=== PATIENT | male | born 1960 | race Caucasian/White ===

== ENCOUNTER 2020-08-16 17:23 | Emergency (ER) | payer MEDICAID ==
[~2020-08-16] VITALS: Ht 185.4 cm; Wt 91.9 kg
--- NOTE | 2020-08-16 17:43 | NUR ---
CONCERNS FOR FROSTBITE ON INDEX, MIDDLE AND RIGHT FINGER ON RIGHT HAND. 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 PT STATES FINGERS WERE WHITE, THEN PURPLE AND NAILBEDS TURNED "ASSISTED BLACK". FINGERS CURRENTLY SWOLLEN AND RED, SMALL OPEN WOUND TO TIP OF MIDDLE FINGER. PT STATES FINGERS ARE "SORE" AND "I CANT EVEN PUT THEM IN MY POCKET". SO AT BEDSIDE
--- NOTE | 2020-08-16 18:23 | NUR ---
REPORT RECEIVED FROM CIARRA LYNN. ASSUMING CARE AT THIS TIME. XRAY AT BEDSIDE.
[2020-08-16] MEDS ORDERED: KETOROLAC 30 MG/1 ML ONE (18:26)
[2020-08-16] MEDS ORDERED: OXYcodone/APAP 5/325MG TABLET ONE (18:27)
[2020-08-16] MEDS ORDERED: OXYcodone/APAP 5/325MG TABLET PO ONE (18:30)
[2020-08-16] MEDS ORDERED: KETOROLAC 30 MG/1 ML IM ONE (18:30)
--- NOTE | 2020-08-16 18:33 | NUR ---
MEDS ADMIN PER MAY. LAB AT BEDSIDE.
[2020-08-16 18:44] LABS: BASOPHILS % (AUTO) 1 % (0-1); EOSINOPHILS % (AUTO) 3 % (1-7); LYMPHOCYTES % (AUTO) 32 % (22-44); MD NO; MEAN CORPUSCULAR HGB CONC 34.9 g/dL (33.2-36.2); MEAN PLATELET VOLUME 8.1 fL (7.4-10.4); MONOCYTES % (AUTO) 12 % (2-9); NEUTROPHILS % (AUTO) 53 % (42-75); PLATELET COUNT 115 x10^3/uL (130-400); RED BLOOD COUNT 4.62 x10^6/uL (4.38-5.82); RED CELL DISTRIBUTION WIDTH 13.5 % (9.4-14.8)
[2020-08-16 18:53] LABS: ANION GAP 5 mmol/L (5-15); CALCIUM 8.7 mg/dL (8.5-10.1); CHLORIDE 111 mmol/L (98-107); CREATININE 1.03 mg/dL (0.7-1.3)
[2020-08-16 19:34] LABS: HCT (SEDRATE) 42.4 % (39.2-51.8)
--- NOTE | 2020-08-16 19:40 | NUR ---
ALL RESULTS ARE BACK AT THIS TIME. CHART UP FOR RECHECK.
[2020-08-16 19:56] VITALS: BP 140/86
--- NOTE | 2020-08-16 20:18 | NUR ---
ERMD AT BEDSIDE TO UPDATE PT ON POC.
== END 2020-08-16 21:17 | disposition home or self-care (01) ==
LOC: ED 19:44
DX: M79.644 Pain in right finger(s) (principal); I10 Essential (primary) hypertension
CPT/HCPCS: 36415; 73140; 80048; 85025; 85651; 86140; 96372; 99284; J1885

== ENCOUNTER 2020-08-20 21:54 | Inpatient (IN) | payer MEDICAID ==
[~2020-08-20] VITALS: Ht 185.4 cm; Wt 91.0 kg
--- NOTE | 2020-08-20 23:12 | NUR ---
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
[2020-08-21] MEDS ORDERED: HYDROcodone/APAP 10/325 MG TABLET ONE (00:14)
[2020-08-21] MEDS ORDERED: GABAPENTIN 300 MG CAPSULE ONE (00:15)
[2020-08-21] MEDS ORDERED: HYDROcodone/APAP 10/325 MG TABLET PO ONE (00:30)
[2020-08-21] MEDS ORDERED: GABAPENTIN 300 MG CAPSULE PO ONE (00:30)
--- NOTE | 2020-08-21 01:00 | NUR ---
PT ARRIVED TO ER WITH KNOWN BLOOD CLOT IN R ARM. PT HAD VISITED [facility] A FEW DAYS AGO AND REALIZED THAT HE WOULD BE ADMITTED FOR THIS AND DECIDED TO LEAVE AND COME BACK TODAY FOR CARE. PT HAS PAIN AND SWELLING IN R ARM ALONG WITH CRACKED FINGERTIPS. CONNECTED TO BP AND O2 MONITORS, MEGAN TRAVIS.
[2020-08-21 01:21] LABS: BASOPHILS % (AUTO) 1 % (0-1); EOSINOPHILS % (AUTO) 3 % (1-7); LYMPHOCYTES % (AUTO) 33 % (22-44); MEAN CORPUSCULAR HEMOGLOBIN 31.8 pg (27.5-34.5); MEAN CORPUSCULAR HGB CONC 34.1 g/dL (33.2-36.2); MEAN PLATELET VOLUME 7.5 fL (7.4-10.4); MONOCYTES % (AUTO) 6 % (2-9); NEUTROPHILS % (AUTO) 57 % (42-75); PLATELET COUNT 174 x10^3/uL (130-400); RED CELL DISTRIBUTION WIDTH 13.5 % (9.4-14.8)
[2020-08-21 01:22] LABS: MD NO
[2020-08-21 01:28] LABS: ALBUMIN 3.4 g/dL (3.4-5.0); ANION GAP 6 mmol/L (5-15); CALCIUM 8.5 mg/dL (8.5-10.1); CHLORIDE 111 mmol/L (98-107); CREATININE 0.93 mg/dL (0.7-1.3)
--- NOTE | 2020-08-21 01:53 | NUR ---
REPORT TO SINGH LYNN
[2020-08-21 02:24] VITALS: BP 164/96
[2020-08-21] MEDS ORDERED: DOCUSATE 100 MG CAPSULE PO PRN (02:30)
[2020-08-21] MEDS ORDERED: hydrALAzine 20 MG/ML, 1ML IVPush PRN (02:30)
[2020-08-21] MEDS ORDERED: PROMETHAZINE 25 MG/ML, 1ML IM PRN (02:30)
[2020-08-21] MEDS ORDERED: POLYETHYLENE GLYCOL 17 GM PACKET PO PRN (02:30)
[2020-08-21] MEDS ORDERED: ENOXAPARIN 40 MG/0.4 ML SQ SCH (02:30)
[2020-08-21] MEDS ORDERED: BISACODYL 10 MG SUPP PR PRN (02:30)
[2020-08-21] MEDS ORDERED: ONDANSETRON 2MG/ML, 2ML IVPush PRN (02:30)
[2020-08-21] MEDS ORDERED: ONDANSETRON ODT 4 MG PO PRN (02:30)
[2020-08-21] MEDS ORDERED: POTASSIUM CHLORIDE 20 MEQ TAB.ER.PRT PO ONE (02:30)
[2020-08-21] MEDS ORDERED: ACETAMINOPHEN 325 MG TABLET PO PRN (02:30)
[2020-08-21] MEDS ORDERED: NICOTINE 14MG/24 HR PATCH.TD24 TD SCH (03:00)
[2020-08-21 03:02] LABS: HCT (SEDRATE) 40.2 % (39.2-51.8)
[2020-08-21 03:14] LABS: C-REACTIVE PROTEIN, QUANT 0.3 mg/dL (0.02-0.49)
[2020-08-21 08:01] VITALS: BP 163/93
[2020-08-21] MEDS: LOSARTAN 25MG TABLET PO SCH (08:43)
[2020-08-21] MEDS: OXYcodone IR 5MG TABLET PO PRN ×2 (08:43→15:15)
[2020-08-21] MEDS: NICOTINE 21 MG/24 HR PATCH.TD24 TD SCH (09:40)
[2020-08-21 12:01] VITALS: BP 143/84
[2020-08-21] MEDS ORDERED: OMNIPAQUE 350 MG/ML, 150 ML BOTTLE ONE (13:52)
[2020-08-21] MEDS ORDERED: HEPARIN 25,000 UNITS/250ML PMX 250 ML IV PRN ×2 (16:30)
[2020-08-21] MEDS ORDERED: HEPARIN 5,000 UNITS/ML, 1ML IV PRN ×2 (16:30→16:31)
[2020-08-21] MEDS ORDERED: HEPARIN 5,000 UNITS/ML, 1ML IV ONE (17:00)
[2020-08-21 20:52] VITALS: BP 142/83
[2020-08-22 00:37] VITALS: BP 131/79
[2020-08-22 06:12] LABS: BASOPHILS % (AUTO) 1 % (0-1); EOSINOPHILS % (AUTO) 3 % (1-7); LYMPHOCYTES % (AUTO) 30 % (22-44); MEAN CORPUSCULAR HGB CONC 34.7 g/dL (33.2-36.2); MEAN PLATELET VOLUME 7.1 fL (7.4-10.4); MONOCYTES % (AUTO) 6 % (2-9); NEUTROPHILS % (AUTO) 60 % (42-75); PLATELET COUNT 163 x10^3/uL (130-400); RED BLOOD COUNT 4.66 x10^6/uL (4.38-5.82); RED CELL DISTRIBUTION WIDTH 13.6 % (9.4-14.8)
[2020-08-22 06:13] LABS: MD NO
[2020-08-22 06:17] LABS: ALBUMIN 3.2 g/dL (3.4-5.0); ANION GAP 5 mmol/L (5-15); CALCIUM 8.6 mg/dL (8.5-10.1); CHLORIDE 109 mmol/L (98-107)
[2020-08-22 06:26] LABS: ALANINE AMINOTRANSFERASE 38 U/L (12-78); ALKALINE PHOSPHATASE 82 U/L (45-117); BILIRUBIN,TOTAL 0.5 mg/dL (0.2-1.0); CHOL/HDL RATIO 3.7; CHOLESTEROL, TOTAL 154 mg/dL (140-239); HDL CHOL % 27 % (26-37); HDL CHOLESTEROL (DIRECT) 42 mg/dL (40-60); LDL CHOLESTEROL,CALCULATED 81 mg/dL (54-169); LDL/HDL RATIO 1.9 (0.5-3.0); TOTAL PROTEIN 6.3 g/dL (6.4-8.2); TRIGLYCERIDES 153 mg/dL (50-200); VLDL CHOLESTEROL 31 mg/dL (0-25)
[2020-08-22 07:20] VITALS: BP 137/84
[2020-08-22] MEDS: NICOTINE 21 MG/24 HR PATCH.TD24 TD SCH (08:40)
[2020-08-22] MEDS: LOSARTAN 25MG TABLET PO SCH (08:40)
[2020-08-22 12:34] VITALS: BP 146/68
[2020-08-22] MEDS ORDERED: ATOR20TA37 PO (14:46)
[2020-08-22] MEDS ORDERED: RIVA20TA PO (14:46)
[2020-08-22] MEDS ORDERED: ATORVASTATIN 20 MG TABLET PO SCH (21:00)
== END 2020-08-22 16:02 | disposition home or self-care (01) | DRG 197 ==
LOC: ED 23:27 → EDIP 08-21 01:16 → 4EST 08-21 02:15 → DCLOUNGE 08-22 13:55
PROVIDERS: ADMIT Internal Medicine; ATTEND Internal Medicine
DX: I70.208 Unspecified atherosclerosis of native arteries of extremities, other extremity (principal); E66.01 Morbid (severe) obesity due to excess calories; E87.6 Hypokalemia; I10 Essential (primary) hypertension; J44.9 Chronic obstructive pulmonary disease, unspecified; F17.210 Nicotine dependence, cigarettes, uncomplicated; Z71.6 Tobacco abuse counseling; Z68.26 Body mass index [BMI] 26.0-26.9, adult; Z82.49 Family history of ischemic heart disease and other diseases of the circulatory system; Z91.19 Patient's noncompliance with other medical treatment and regimen; Z79.01 Long term (current) use of anticoagulants
CPT/HCPCS: 36415; 71275; 80048; 80053; 80061; 82040; 83036; 83735; 84100; 84443; 85025; 85520; 85651; 86140; 87040; 93005; 93306; 93931; 96372; 99285; G0378; J1644; J1650; Q9967